=== PATIENT | female | born 2000 | race Two or more races ===

== ENCOUNTER 2020-04-05 10:01 | Emergency (ER) | payer MEDICAID, OTHER ==
[~2020-04-05] VITALS: Ht 154.9 cm; Wt 63.0 kg
[2020-04-05 10:13] VITALS: BP 127/83
[2020-04-05] MEDS ORDERED: IBUPROFEN 800 MG TAB PO ONE (11:15)
[2020-04-05] MEDS ORDERED: cefTRIAXone SOD 1,000 MG VL IM ONE (11:15)
== END 2020-04-05 11:47 | disposition home or self-care (01) ==
LOC: ER 10:01
DX: K04.7 Periapical abscess without sinus (principal); F17.210 Nicotine dependence, cigarettes, uncomplicated; Z88.6 Allergy status to analgesic agent
CPT/HCPCS: 96372; 99283; J0696